=== PATIENT | female | born 1990 | race Caucasian/White ===

== ENCOUNTER 2019-06-30 20:50 | Emergency (ER) | payer OTHER ==
[~2019-06-30] VITALS: Ht 160 cm; Wt 63.6 kg
[2019-06-30 20:51] VITALS: BP 115/82
[2019-06-30] MEDS ORDERED: predniSONE 20 MG TAB PO ONE (21:30)
[2019-06-30] MEDS ORDERED: diphenhydrAMINE 50 MG CAP PO ONE (21:30)
[2019-06-30] MEDS ORDERED: BENA25CA4 PO (22:32)
[2019-06-30] MEDS ORDERED: TRIA1OI TOP (22:32)
[2019-06-30] MEDS ORDERED: PRED20TA PO (22:32)
== END 2019-06-30 22:35 | disposition home or self-care (01) ==
LOC: M ED 20:50
DX: L50.0 Allergic urticaria (principal); L25.9 Unspecified contact dermatitis, unspecified cause